=== PATIENT | male | born 1975 | race Caucasian/White ===

== ENCOUNTER → 2021-01-30 | Outpatient (CLI) | payer OTHER ==
[~2021-01-30] MED LIST: ADMELOG SQ; ALDACTONE 25MG25 MG PO; AMOXICILLIN500 M1 PO; ATORVASTATIN CA10 MG PO; AUGMENTIN 875-1 EACH PO; BACTRIM DS TAB1 EACH PO; CLARITIN 10MG T10 MG PO; COZAAR100 MG PO; DILT-XR180 MG PO; DILTIAZEM 24HR120 M1 PO; INVANZ 1 GM VIAL1 GM IV; KEFLEX CAP 500500 MG PO; KEFLEX500 MG PO; LIPITOR10 MG PO; LOPRESSOR50 MG PO; LOSARTAN POTAS100 MG PO; NEURONTIN800 MG PO; OMEPRAZOLE40 MG PO; PERCOCET 10-321 EACH PO; SPIRONOLACTONE25 MG PO; THERAGRAN M TAB1 EA PO; TOPAMAX50 MG PO; TRAMADOL HCL50 MG PO; TRESIBA FL100 UNIT/1 SQ; TYLENOL 500 MG500 MG PO; TYLENOL W/CODEIN1 EA PO; VITAMIN B-650 MG PO; VITAMIN D325 MCG PO; VITAMIN D35000 UNI1 PO
== END ==
LOC: WCC 07:59
DX: E11.621 Type 2 diabetes mellitus with foot ulcer (principal); L97.529 Non-pressure chronic ulcer of other part of left foot with unspecified severity; E11.610 Type 2 diabetes mellitus with diabetic neuropathic arthropathy; I10 Essential (primary) hypertension; I73.9 Peripheral vascular disease, unspecified; Z79.4 Long term (current) use of insulin
CPT/HCPCS: 97597; G0463

== ENCOUNTER → 2021-02-06 | Outpatient (CLI) | payer OTHER | LOC: WCC 08:19 | DX: E11.621 Type 2 diabetes mellitus with foot ulcer (principal); L97.521 Non-pressure chronic ulcer of other part of left foot limited to breakdown of skin; E11.610 Type 2 diabetes mellitus with diabetic neuropathic arthropathy; I10 Essential (primary) hypertension; I73.9 Peripheral vascular disease, unspecified; Z79.4 Long term (current) use of insulin | CPT/HCPCS: 97597 ==